=== PATIENT | male | born 1985 | race Caucasian/White ===

== ENCOUNTER 2019-04-19 21:17 | Emergency (ER) | payer OTHER ==
[~2019-04-19] VITALS: Ht 177.8 cm; Wt 77.1 kg
== END 2019-04-19 23:33 | disposition home or self-care (01) ==
LOC: ER 21:17
DX: R11.11 Vomiting without nausea (principal); R10.9 Unspecified abdominal pain; R50.9 Fever, unspecified; K52.89 Other specified noninfective gastroenteritis and colitis

== ENCOUNTER 2019-11-03 10:38 | Emergency (ER) | payer OTHER ==
[~2019-11-03] VITALS: Ht 180.3 cm; Wt 79.4 kg
[2019-11-03] MEDS ORDERED: KETO10TA2 PO (12:44)
[2019-11-03] MEDS ORDERED: AMOX-CLAV 875-1 EACH PO (12:44)
== END 2019-11-03 12:50 | disposition home or self-care (01) ==
LOC: ER 10:38
DX: J03.00 Acute streptococcal tonsillitis, unspecified (principal); Z03.818 Encounter for observation for suspected exposure to other biological agents ruled out

== ENCOUNTER 2020-01-16 14:42 | Outpatient (CLI) | payer OTHER ==
[~2020-01-16 14:42] MED LIST: AMOX-CLAV 875-1 EACH PO; KETO10TA2 PO
== END 2020-01-16 14:46 | disposition home or self-care (01) ==
LOC: LAB 14:42
DX: R05 Cough (principal); R06.02 Shortness of breath; Z20.828 Contact with and (suspected) exposure to other viral communicable diseases; Z03.818 Encounter for observation for suspected exposure to other biological agents ruled out; R50.9 Fever, unspecified

== ENCOUNTER 2020-03-03 12:40 | Emergency (ER) | payer OTHER ==
[~2020-03-03] VITALS: Ht 177.8 cm; Wt 74.8 kg
== END 2020-03-03 16:04 | disposition home or self-care (01) ==
LOC: ER 12:40
DX: B34.9 Viral infection, unspecified (principal); Z03.818 Encounter for observation for suspected exposure to other biological agents ruled out

== ENCOUNTER 2021-01-11 11:39 | Emergency (ER) | payer OTHER ==
[~2021-01-11] VITALS: Ht 180.3 cm; Wt 79.4 kg
== END 2021-01-11 18:01 | disposition home or self-care (01) ==
LOC: ER 11:39
DX: J02.8 Acute pharyngitis due to other specified organisms (principal); Z20.822 Contact with and (suspected) exposure to COVID-19

== ENCOUNTER 2021-05-03 09:44 | Emergency (ER) | payer OTHER ==
[~2021-05-03] VITALS: Ht 180.3 cm; Wt 78.9 kg
== END 2021-05-03 10:49 | disposition home or self-care (01) ==
LOC: ER 09:44
DX: R53.81 Other malaise (principal); R50.9 Fever, unspecified; Z03.818 Encounter for observation for suspected exposure to other biological agents ruled out

== ENCOUNTER 2021-08-04 11:50 | Emergency (ER) | payer OTHER ==
[~2021-08-04] VITALS: Ht 180.3 cm; Wt 78.0 kg
== END 2021-08-04 15:32 | disposition home or self-care (01) ==
LOC: ER 11:50
DX: J02.8 Acute pharyngitis due to other specified organisms (principal); B96.89 Other specified bacterial agents as the cause of diseases classified elsewhere; Z20.822 Contact with and (suspected) exposure to COVID-19

== ENCOUNTER 2021-10-17 11:02 | Emergency (ER) | payer OTHER ==
[~2021-10-17] VITALS: Ht 180.3 cm; Wt 79.4 kg
[2021-10-17] MEDS ORDERED: AMOX-CLAV 875-1 EACH PO (14:02)
== END 2021-10-17 14:06 | disposition home or self-care (01) ==
LOC: ER 11:02
DX: J02.8 Acute pharyngitis due to other specified organisms (principal); B96.89 Other specified bacterial agents as the cause of diseases classified elsewhere; Z88.8 Allergy status to other drugs, medicaments and biological substances; Z20.822 Contact with and (suspected) exposure to COVID-19

== ENCOUNTER 2022-01-04 09:53 | Emergency (ER) | payer OTHER ==
[~2022-01-04] VITALS: Ht 170.2 cm; Wt 77.1 kg
== END 2022-01-04 12:19 | disposition home or self-care (01) ==
LOC: ER 09:53
DX: Z20.2 Contact with and (suspected) exposure to infections with a predominantly sexual mode of transmission (principal); Z71.1 Person with feared health complaint in whom no diagnosis is made; Z88.8 Allergy status to other drugs, medicaments and biological substances

== ENCOUNTER 2022-01-06 14:01 | Emergency (ER) | payer OTHER ==
[~2022-01-06] VITALS: Ht 180.3 cm; Wt 77.1 kg
== END 2022-01-06 20:25 | disposition home or self-care (01) ==
LOC: ER 14:01
DX: A60.01 Herpesviral infection of penis (principal); J02.9 Acute pharyngitis, unspecified; Z88.8 Allergy status to other drugs, medicaments and biological substances